=== PATIENT | male | born 1965 | race American Indian/Alaskan Native ===

== ENCOUNTER 2019-01-16 11:48 | Day surgery (SDC) | payer MEDICARE, OTHER ==
[~2019-01-16 11:48] MED LIST: APRACLONIDINE 1% OPHTH SOLN DROPERETTE ONE; PHENYLEPHRINE 10% OPHTH SOLN 5 ML ONE; TROPICAMIDE 1% OPHTH SOLN 3 ML ONE
[2019-01-16] MEDS ORDERED: TROPICAMIDE 1% OPHTH SOLN 3 ML OD ONE (11:52)
[2019-01-16] MEDS ORDERED: PHENYLEPHRINE 10% OPHTH SOLN 5 ML OD ONE (11:52)
[2019-01-16] MEDS ORDERED: APRACLONIDINE 1% OPHTH SOLN DROPERETTE OD ONE (11:52)
[2019-01-16 14:08] VITALS: BP 141/91
== END 2019-01-16 11:49 | disposition home or self-care (01) ==
LOC: OR 11:48
PROVIDERS: ATTEND Specialist
DX: H26.491 Other secondary cataract, right eye (principal); H40.9 Unspecified glaucoma; E78.00 Pure hypercholesterolemia, unspecified; I10 Essential (primary) hypertension; Z79.899 Other long term (current) drug therapy; Z79.82 Long term (current) use of aspirin; Z98.49 Cataract extraction status, unspecified eye; Z95.1 Presence of aortocoronary bypass graft; Z98.890 Other specified postprocedural states